=== PATIENT | male | born 1995 | race Native Hawaiian/Other Pacific Islander ===

== ENCOUNTER 2020-10-08 16:31 | Outpatient (REF) | payer OTHER, SELFPAY | END 2020-10-08 16:32 | disposition home or self-care (01) | LOC: HO.LAB 16:31 | PROVIDERS: Visit Provider Internal Medicine | DX: Z20.828 Contact with and (suspected) exposure to other viral communicable diseases (principal) | CPT/HCPCS: 36415; C9803; U0003 ==

== ENCOUNTER 2020-12-22 15:19 | Outpatient (REF) | payer OTHER, SELFPAY | END 2020-12-22 15:20 | disposition home or self-care (01) | LOC: HO.LAB 15:19 | PROVIDERS: Visit Provider Internal Medicine | DX: Z20.822 Contact with and (suspected) exposure to COVID-19 (principal) | CPT/HCPCS: 36415; C9803; U0003; U0005 ==

== ENCOUNTER 2021-01-20 10:04 | Outpatient (REF) | payer OTHER, SELFPAY ==
[2021-01-20 10:48] LABS: COVID-19 Test Positive (Negative)
== END 2021-01-20 10:05 | disposition home or self-care (01) ==
LOC: HO.LAB 10:04
PROVIDERS: Visit Provider Internal Medicine
DX: Z20.822 Contact with and (suspected) exposure to COVID-19 (principal)
CPT/HCPCS: 36415; 87635; C9803

== ENCOUNTER 2021-09-12 14:38 | Emergency (ER) | payer OTHER, SELFPAY ==
--- NOTE | ~2021-09-12 | XR_ITS ---
EXAMINATION: XR CHEST CLINICAL INFORMATION: Cough. Fever. COMPARISON: None TECHNIQUE: 2 views of the chest were obtained. FINDINGS: The lungs are clear. The cardiomediastinal silhouette is normal in size. There is no pleural effusion or pneumothorax. No acute osseous abnormality. XR/XR chest 2V IMPRESSION: No acute cardiopulmonary findings.
[2021-09-12 14:44] VITALS: BP 156/88; PULSE 97; RESP 16; TEMP 36.8; O2SAT 99; BMI 28.8
[2021-09-12 16:01] LABS: MANUAL DIFF FLAG NO
[2021-09-12 16:07] LABS: Basophils Percent Auto 0.1 % (0-2); Hemoglobin 17.5 g/dl (14.0-18.0); Imm Gran Abs Auto 0.02 X10*3/uL (0.00-0.03); Imm Gran Pct Auto 0.2 % (0.0-0.4); Lymphocytes Absolute Auto 0.8 X10*3/uL (1.2-4.9); Lymphocytes Percent Auto 8.1 % (20-40); Mean Corpuscular HGB Conc 34.3 g/dl (31.0-36.0); Mean Corpuscular Hemoglobin 29.8 pg (27.0-33.0); Mean Corpuscular Volume 86.9 fL (80.0-98.0); Mean Platelet Volume 9.8 fL (9.4-12.4); Monocytes Absolute Auto 0.9 X10*3/uL (0.1-1.2); Monocytes Percent Auto 8.9 % (2-11); Neutrophils Absolute Auto 7.9 x10*3/uL (2.0-8.3); Neutrophils Percent Auto 82.7 % (45-73); Platelet Count 202 X10*3/uL (160-400); Red Blood Count 5.87 X10*6/uL (4.60-5.80); Red Cell Distribution Width 12.4 % (11.0-16.0); White Blood Count 9.5 X10*3/uL (4.8-10.8)
[2021-09-12 16:17] VITALS: BP 148/80; PULSE 88; RESP 18; TEMP 38.2; O2SAT 100
[2021-09-12 16:17] LABS: Alanine Aminotransferase 43 U/L (0-40); Albumin Level 4.2 g/dL (3.5-5.0); Alkaline Phosphatase 107 U/L (39-117); Anion Gap 13 (12-20); Aspartate Amino Transferase 27 U/L (5-37); Bilirubin Total 0.9 mg/dL (0.0-1.0); Blood Urea Nitrogen 11 mg/dL (9-16); Calcium 9.4 mg/dL (8.4-10.2); Carbon Dioxide 26 mmol/L (22-29); Chloride 104 mmol/L (96-108); Creatinine Clr Calc Pharmacy 106.8; Estimated Glomerular Filt Rate > 60; Glucose Random 101 mg/dL (60-115); Potassium 3.7 mmol/L (3.3-5.1); Sodium 139 mmol/L (135-145); Total Protein 7.4 g/dL (6.5-8.0)
--- NOTE | 2021-09-12 16:27 | ED.NAVMDI ---
HPI - Nausea/Vomiting/Diarrhea General Chief complaint: Nausea/Vomiting/Diarrhea Stated complaint: N/V/D Chest pain Time Seen by Provider: 09/12/21 16:18 Source: patient Mode of arrival: ambulatory Limitations: no limitations History of Present Illness HPI Narrative: 25-year-old male here with complaints of waking with vomiting and 01:00 o'clock this morning. Patient tells me he was able to fall back asleep but then woke up several hours later with diarrhea. He did have some continue dry heaves but no additional vomiting episodes since this morning. He denies any associated abdominal pain. He does feel like he has had some chills and potentially a fever. Also complaining of some chest discomfort described as burning. No shortness of breath, cough, runny nose, headache, joint pain or rash. Associated nausea: Yes Related Data Previous Rx's Medication Instructions Recorded ondansetron 4 mg disintegrating 4 mg PO Q6H PRN #10 tab 09/12/21 tablet Allergies Allergy/AdvReac Type Severity Reaction Status Date / Time aspirin [ASPIRIN] Allergy Unknown HIVES Unverified 06/19/20 18:56 Review of Systems Review of Systems: Yes all other systems are reviewed and are negative Constitutional: Constitutional: Reports no additional constitutional complaints, Denies body ache(s), Reports chills, Reports fever(s) (subjective ), Denies headache(s) and Denies weakness Eyes: Eyes: Reports no additional eye complaints and Denies change in vision ENT: Reports system reviewed and no additional complaints, except as documented, Denies dizziness, Denies headache(s), Denies nasal congestion, Denies nasal discharge and Denies neck pain Cardiovascular: Cardiovascular: Reports no additional cardiovascular complaints, Reports chest pain, Denies leg edema and Denies dyspnea Respiratory: Respiratory: Reports no additional respiratory complaints, Denies cough and Denies dyspnea Gastrointestinal: Gastrointestinal: Reports no additional gastrointestinal complaints, Denies abdominal pain, Reports diarrhea, Reports nausea and Reports vomiting Genitourinary: Genitourinary: Denies urinary incontinence Musculoskeletal: Musculoskeletal: Reports no additional musculoskeletal complaints, Denies back pain, Denies arthralgias, Denies joint swelling, Denies neck pain, Denies numbness and Denies tingling Integumentary/Breasts: Skin/Breast: Reports system reviewed and no additional complaints, except as docu and Denies rash Neurologic: Reports system reviewed and no additional complaints, except as documented, Denies Abnormal speech present, Denies dizziness, Denies headache(s), Denies numbness, Denies tingling and Denies weakness PMFSH Past Medical History Attestation statement: The following information was validated with the patient. Source: old records reviewed and nursing notes reviewed Medical History No known health problems Social History Social History Advance Directives: No Advance Directives Information Provided: No Physical Exam Vital Signs: Vital Signs: Last Vital Signs Temp 99.1 F 09/12/21 17:32 Pulse 79 09/12/21 17:32 Resp 16 09/12/21 17:32 BP 123/78 09/12/21 17:32 Pulse Ox 94 09/12/21 17:32 BMI result Body Mass Index 28.8 Const: General: cooperative, healthy appearing, comfortable and no acute distress Orientation/consciousness: patient oriented x3 Limitations: no limitations HENMT: Head: Yes normal to inspection Ears: hearing grossly normal bilaterally General nose exam: Normal external nose present Face and sinus: Yes normal facial exam Mouth: Normal oral and palatal mucosa present Throat: Yes posterior oropharynx normal Eyes: General: appearance normal, both eyes and all related structures Pupils: Equal, round and reactive pupils present Neck: Neck: Yes normal visual inspection Chest: Chest palpation & inspection: normal inspection of the chest Resp: Effort & Inspection: normal respiratory effort Auscultation: clear to auscultation bilaterally Cardio: Rate: regular rate Rhythm: regular rhythm Peripheral pulses: Peripheral pulses 2+ throughout GI: Inspection: Yes normal to inspection Palpation (GI): Soft to palpation and nontender Auscultation: normal bowel sounds Back/Spine/Pelvis: Thoracic/Lumbar Spine: thoracic and lumbar spine normal to inspection Skin: General skin exam: no rashes or lesions noted Neuro: General: patient oriented x3, no focal motor deficits and normal sensation to monofilament Cranial nerves: Yes Equal, round and reactive pupils present Cognition (Neuro): normal cognition Speech: No Abnormal speech present Gait exam (Neuro): Normal gait present Motor exam (neuro): 5/5 motor strength present throughout Extrem: General: Yes normal to inspection, Yes no pedal edema and Yes no calf tenderness Course Course Course Narrative: 25 yo male here with complaints of vomiting, diarrhea, chest burning , chills, subjective fevers since 0100. No abdominal pain. Patient has not vomited in several hours. On arrival he does have a low-grade fever. Will give Zofran sublingual, APAP for fever. Check labs, COVID screen an x-ray. [id number], COVID screen, chest x-ray unremarkable. Patient was able to tolerate Tylenol and [place] with no additional vomiting episodes. Repeat abdominal exam unchanged with no abdominal pain. Likely viral gastroenteritis. Reviewed worrisome signs and symptoms of when to return to the emergency department. Comfortable discharge home. MDM - Nausea/Vomiting/Diarrhea Medical Records Attestation: I reviewed the patient's medical records. Lab Data Attestation: I reviewed the patient's lab results. Result diagrams: 09/12/21 15:56 09/12/21 15:56 Labs: Lab Results 09/12/21 09/12/21 09/12/21 Range/Units 15:56 15:56 15:56 WBC 9.5 (4.8-10.8) X10*3/uL RBC 5.87 H (4.60-5.80) X10*6/uL Hgb 17.5 (14.0-18.0) g/dl Hct 51.0 (42.0-52.0) % MCV 86.9 (80.0-98.0) fL MCH 29.8 (27.0-33.0) pg MCHC 34.3 (31.0-36.0) g/dl RDW 12.4 (11.0-16.0) % Plt Count 202 (160-400) X10*3/uL MPV 9.8 (9.4-12.4) fL Immature Gran % (Auto) 0.2 (0.0-0.4) % Neut % (Auto) 82.7 H (45-73) % Lymph % (Auto) 8.1 L (20-40) % [place] % (Auto) 8.9 (2-11) % Eos % (Auto) 0.0 (0-4) % Baso % (Auto) 0.1 (0-2) % Lymph # (Auto) 0.8 L (1.2-4.9) X10*3/uL [place] # (Auto) 0.9 (0.1-1.2) X10*3/uL Eos # (Auto) 0.0 (0.0-0.4) X10*3/uL Baso # (Auto) 0.0 (0.0-0.2) X10*3/uL Abs Immat Gran (auto) 0.02 (0.00-0.03) X10*3/uL Absolute Neuts (auto) 7.9 (2.0-8.3) x10*3/uL Absolute Nucleated RBC 0.000 (0.0-0.012) X10*3/uL Nucleated RBC % (auto) 0.0 (0.0-0.2) /100WBC Sodium 139 (135-145) mmol/L Potassium 3.7 (3.3-5.1) mmol/L Chloride 104 (96-108) mmol/L Carbon Dioxide 26 (22-29) mmol/L Anion Gap 13 (12-20) BUN 11 (9-16) mg/dL Creatinine 1.20 (0.5-1.4) mg/dL Estim Creat Clear Calc 106.8 Estimated GFR > 60 Random Glucose 101 (60-115) mg/dL Calcium 9.4 (8.4-10.2) mg/dL Total Bilirubin 0.9 (0.0-1.0) mg/dL AST 27 (5-37) U/L ALT 43 H (0-40) U/L Alkaline Phosphatase 107 (39-117) U/L Total Protein 7.4 (6.5-8.0) g/dL Albumin 4.2 (3.5-5.0) g/dL COVID-19 (LAYO) Negative (Negative) COVID-19 Clin Com See Note Imaging Data Chest x-ray: Attestation: I personally reviewed and interpreted this imaging study as follows: Radiologist's impression: [address] [address] XRay Report Signed Patient: Eyal Amor MR#: [id number] : 1995 Acct:[id number] Age/Sex: 25 / M ADM Date: 09/12/21 Loc: HO.ED Attending Dr: Ordering Physician: Kimberlyn Staley NP Date of Service: 09/12/21 Procedure(s): XR chest 2V Accession Number(s): [id number] cc: Kimberlyn Staley NP~ EXAMINATION: XR CHEST CLINICAL INFORMATION: Cough. Fever. COMPARISON: None TECHNIQUE: 2 views of the chest were obtained. FINDINGS: The lungs are clear. The cardiomediastinal silhouette is normal in size. There is no pleural effusion or pneumothorax. No acute osseous abnormality. XR/XR chest 2V IMPRESSION: No acute cardiopulmonary findings. Discharge Plan Discharge Clinical Impression: Gastroenteritis Patient Disposition: Home, Self-Care Instructions: Gastroenteritis (ED) Additional Instructions: Start with clear liquid diet and advance diet as tolerated COVID test, blood work and x-ray are normal Prescriptions: New ondansetron 4 mg tablet,disintegrating 4 mg PO Q6H PRN (Reason: nausea and vomiting) Qty: 10 RF: 0 Referrals: Physician,None [Primary Care Provider] - 2 days Stand Alone Forms: Work/School Release Interventions: ED Discharge Assessment Last Done: 09/12/21 17:55 Discharge Date/Time: 09/12/21 17:56
[2021-09-12 16:29] LABS: COVID-19 Test Negative (Negative); IDNOW Serial# 08D9AD1C
[2021-09-12] MEDS: Ondansetron ODT 4 MG TAB.RAPDIS TRANSLINGU (16:29)
[2021-09-12] MEDS: Acetaminophen 325 MG TABLET 650 MG PO (16:36)
[2021-09-12 17:32] VITALS: BP 123/78; PULSE 79; RESP 16; TEMP 37.3; O2SAT 94
== END 2021-09-12 17:56 | disposition home or self-care (01) ==
PROVIDERS: Emergency Provider Emergency Medicine
DX: K52.9 Noninfective gastroenteritis and colitis, unspecified (principal); Z20.822 Contact with and (suspected) exposure to COVID-19; R11.2 Nausea with vomiting, unspecified; R50.9 Fever, unspecified
CPT/HCPCS: 36415; 71046; 80053; 85025; 87635; 99283; 99284

== ENCOUNTER 2022-09-07 11:56 | Emergency (ER) | payer SELFPAY ==
--- NOTE | ~2022-09-07 | XR_ITS ---
EXAMINATION: XR CHEST CLINICAL INFORMATION: Cough, shortness of breath. COMPARISON: 09/12/2021 chest radiographs. TECHNIQUE: 2 views of the chest were obtained. FINDINGS: No significant abnormality is noted involving the heart, lungs, mediastinum, bony thorax or soft tissues. XR/XR chest 2V IMPRESSION: Unremarkable examination.
[2022-09-07 12:02] VITALS: BP 148/98; PULSE 98; RESP 16; TEMP 38.5; O2SAT 96; BMI 28.7
--- NOTE | 2022-09-07 12:02 | ED.GENADULT ---
HPI - General Adult General Chief complaint: Upper Respiratory Symptoms <Becki Harper MD - Last Filed: 09/07/22 12:09> Stated complaint: Sore throat/Fever <Becki Harper MD - Last Filed: 09/07/22 12:09> Time Seen by Provider: 09/07/22 14:00 <Becki Harper MD - Last Filed: 09/07/22 12:09> Source: patient <KUMAR Nolan - Last Filed: 09/07/22 15:02> Mode of arrival: ambulatory <KUMAR Nolan - Last Filed: 09/07/22 15:02> Limitations: no limitations <KUMAR Nolan - Last Filed: 09/07/22 15:02> History of Present Illness HPI narrative: Patient is a 26 year old assigned male at with no reported medical history presenting to the emergency department today with a sore throat and a cough. Patient states that for the last 3 days he has had a cough, fever, and a sore throat. Patient states that his left eye has also been red. Patient denies any dizziness, lightheadedness, abdominal pain, nausea, vomiting, chills, blurry vision, double vision, loss of vision, chest pain, difficulty breathing, shortness of breath, back pain, night sweats, pain with urination, increased urinary frequency, increased urinary urgency, blood in his urine or stool, syncope or a near syncopal episode, recent trauma or falls, bowel incontinence, bladder incontinence, bowel retention, bladder retention, or any other complaints at this time. <KUMAR Nolan - Last Filed: 09/07/22 15:02> Onset (ago): day(s) (3) <KUMAR Nolan - Last Filed: 09/07/22 15:02> Severity: mild <KUMAR Nolan - Last Filed: 09/07/22 15:02> Severity scale (1-10): 3 <KUMAR Nolan - Last Filed: 09/07/22 15:02> Quality: aching and dull <KUMAR Nolan - Last Filed: 09/07/22 15:02> Pain Consistency: constant <KUMAR Nolan - Last Filed: 09/07/22 15:02> Relieving factors: none <KUMAR Nolan - Last Filed: 09/07/22 15:02> Exacerbating factors: none <KUMAR Nolan - Last Filed: 09/07/22 15:02> Associated symptoms: cough <KUMAR Nolan - Last Filed: 09/07/22 15:02> Treatments prior to arrival: none <KUMAR Nolan - Last Filed: 09/07/22 15:02> Related Data Home medications: Previous Rx's Medication Instructions Recorded ondansetron 4 mg disintegrating 4 mg PO Q6H PRN nausea and 09/12/21 tablet vomiting #10 tabs penicillin V potassium 500 mg 500 mg PO BID 10 days #20 tabs 09/07/22 tablet <Becki Harper MD - Last Filed: 09/07/22 12:09> Allergies/adverse reactions: Allergies Allergy/AdvReac Type Severity Reaction Status Date / Time aspirin [ASPIRIN] Allergy Unknown HIVES Unverified 06/19/20 18:56 <Becki Harper MD - Last Filed: 09/07/22 12:09> Review of Systems Constitutional: Constitutional: Reports no additional constitutional complaints, Denies chills, Reports fever(s) and Denies night sweats <KUMAR Nolan - Last Filed: 09/07/22 15:02> Eyes: Eyes: Reports no additional eye complaints, Denies blurry vision, Denies change in vision, Denies diplopia, Denies eye discharge, Denies loss of vision and Denies eye pain <KUMAR Nolan - Last Filed: 09/07/22 15:02> Comments: redness to the left eye <KUMAR Nolan - Last Filed: 09/07/22 15:02> ENT: Denies dizziness and Reports sore throat <KUMAR Nolan - Last Filed: 09/07/22 15:02> Cardiovascular: Cardiovascular: Reports no additional cardiovascular complaints, Denies chest pain, Denies lightheadedness, Denies Loss of Consciousness and Denies dyspnea <KUMAR Nolan - Last Filed: 09/07/22 15:02> Respiratory: Respiratory: Reports no additional respiratory complaints, Reports cough and Denies dyspnea <KUMAR Nolan - Last Filed: 09/07/22 15:02> Gastrointestinal: Gastrointestinal: Reports no additional gastrointestinal complaints, Denies abdominal pain, Denies melena, Denies hematochezia, Denies change in bowel habits and Denies change in stool character <KUMAR Nolan - Last Filed: 09/07/22 15:02> Genitourinary: Genitourinary: Reports no additional male genitourinary complaints, Denies hematuria, Denies oliguria, Denies difficulty urinating, Denies dysuria, Denies urinary frequency, Denies urinary hesitancy, Denies urinary incontinence and Denies urinary urgency <KUMAR Nolan - Last Filed: 09/07/22 15:02> Musculoskeletal: Musculoskeletal: Reports no additional musculoskeletal complaints, Denies numbness and Denies tingling <KUMAR Nolan - Last Filed: 09/07/22 15:02> Neurologic: Denies dizziness, Denies loss of vision, Denies numbness and Denies tingling <KUMAR Nolan - Last Filed: 09/07/22 15:02> Psychiatric: Psychiatric: Reports no additional psychiatric complaints <KUMAR Nolan - Last Filed: 09/07/22 15:02> Endocrine: Endocrine: Reports no additional endocrine complaints <KUMAR Nolan - Last Filed: 09/07/22 15:02> Hematologic/Lymphatic: Hematologic/Lymphatic: Reports no additional hematologic/lymphatic complaints <KUMAR Nolan - Last Filed: 09/07/22 15:02> Allergic/Immunologic: Allergic/Immunologic: Reports no additional allergic/immunologic complaints <KUMAR Nolan - Last Filed: 09/07/22 15:02> PMF Past Medical History Attestation statement: The following information was validated with the patient. <KUMAR Nolan - Last Filed: 09/07/22 15:02> Source: old records reviewed <KUMAR Nolan - Last Filed: 09/07/22 15:02> Medical History: Medical History No known health problems <Becki Harper MD - Last Filed: 09/07/22 12:09> Social History Social History: Social History Advance Directives: No Advance Directives Information Provided: No <Becki Harper MD - Last Filed: 09/07/22 12:09> Physical Exam ED Vital Signs: Vital Signs - 24 hr 09/07/22 12:02 Temperature 101.3 F H Pulse Rate 98 Respiratory Rate 16 Blood Pressure 148/98 H Pulse Oximetry 96 Oxygen Delivery Method Room Air BMI result Body Mass Index 28.7 <Becki Harper MD - Last Filed: 09/07/22 12:09> Vital Signs - 24 hr 09/07/22 12:02 Temperature 101.3 F H Pulse Rate 98 Respiratory Rate 16 Blood Pressure 148/98 H Pulse Oximetry 96 Oxygen Delivery Method Room Air BMI result Body Mass Index 28.7 <KUMAR Nolan - Last Filed: 09/07/22 15:02> Const General: cooperative, no acute distress, alert and awake <KUMAR Nolan - Last Filed: 09/07/22 15:02> Nutritional Appearance: well nourished <KUMAR Nolan - Last Filed: 09/07/22 15:02> Orientation/consciousness: patient oriented x3 <KUMAR Nolan - Last Filed: 09/07/22 15:02> Limitations: no limitations <KUMAR Nolan - Last Filed: 09/07/22 15:02> HENMT Head: Yes normal to inspection and Yes atraumatic <KUMAR Nolan - Last Filed: 09/07/22 15:02> Ears: hearing grossly normal bilaterally and external ears normal <KUMAR Nolna - Last Filed: 09/07/22 15:02> General nose exam: Normal external nose present, no nasal discharge noted and no epistaxis <KUMAR Nolan - Last Filed: 09/07/22 15:02> Face and sinus: Yes normal facial exam, No abrasion and No laceration <KUMAR Nolan - Last Filed: 09/07/22 15:02> Mouth: Normal oral and palatal mucosa present, no drooling and no muffled voice <KUMAR Nolan - Last Filed: 09/07/22 15:02> Throat: Yes posterior oropharynx abnormal (erythema, swelling) <KUMAR Nolan Last Filed: 09/07/22 15:02> Eyes Periorbital: periorbital findings normal <Jenelle Segura PA - Last Filed: 09/07/22 15:02> Eyelids: Yes eyelids normal <Jenelle Segura PA - Last Filed: 09/07/22 15:02> Conjunctivae: conjunctival abnormal left conjunctival icterus <Jenelle Segura PA - Last Filed: 09/07/22 15:02> Pupils: Equal, round and reactive pupils present <Jenelle Segura PA - Last Filed: 09/07/22 15:02> EOM: EOMs intact bilaterally <Jenelle Segura PA - Last Filed: 09/07/22 15:02> Neck Neck: Yes normal visual inspection, Yes full ROM and Yes no lymphadenopathy <Jenelle Segura PA - Last Filed: 09/07/22 15:02> Chest Chest palpation & inspection: normal inspection of the chest <Jenelle Segura PR - Last Filed: 09/07/22 15:02> Resp Effort & Inspection: normal respiratory effort and able to speak in complete sentences <Jenelle Segura PA - Last Filed: 09/07/22 15:02> Auscultation: clear to auscultation bilaterally <Jenelle Segura PA - Last Filed: 09/07/22 15:02> Cardio Rate: regular rate <Jenelle Segura PA - Last Filed: 09/07/22 15:02> Rhythm: regular rhythm <Jenelle Segura PR - Last Filed: 09/07/22 15:02> GI Inspection: Yes normal to inspection <Jenelle Segura PA - Last Filed: 09/07/22 15:02> Neuro General: patient oriented x3 and moves all extremities <Jenelle Segura PA - Last Filed: 09/07/22 15:02> Cranial nerves: Yes Equal, round and reactive pupils present <Jenelle Segura PA - Last Filed: 09/07/22 15:02> Cognition (Neuro): normal cognition <Jenelle Segura PA - Last Filed: 09/07/22 15:02> Motor exam (neuro): 5/5 motor strength present throughout <Jenelle Segura PA - Last Filed: 09/07/22 15:02> Sensory Exam: Normal double simultaneous stimulation for sensation <KUMAR Nolan - Last Filed: 09/07/22 15:02> Coordination: [id number] test normal <KUMAR Nolan - Last Filed: 09/07/22 15:02> Extrem General: Yes normal to inspection, Yes full ROM and Yes capillary refill normal <KUMAR Nolan - Last Filed: 09/07/22 15:02> Psych Appearance: grossly normal <KUMAR Nolan - Last Filed: 09/07/22 15:02> Mental Status: mental status grossly normal <KUMAR Nolan - Last Filed: 09/07/22 15:02> Affect: normal affect <KUMAR Nolan - Last Filed: 09/07/22 15:02> Attitude: cooperative <KUMAR Nolan - Last Filed: 09/07/22 15:02> Thought process: Normal thought process present <KUMAR Nolan - Last Filed: 09/07/22 15:02> Thought content: Normal thought content present <KUMAR Nolan - Last Filed: 09/07/22 15:02> Insight: Good insight present (Psych) <KUMAR Nolan - Last Filed: 09/07/22 15:02> Course Course Course Narrative: 26M with subjective fevers, chills, for 2 days with cough that he now says is blood-tinged at timesbut denies GI/ symptoms. VS Reviewed GEN: NAD LEFT EYE: conjunctival redness, mild swelling EARS: wnl THROAT: LEFT red/swelling, +adenopathy LUNGS: CTAB CVS: RRR ABD: NT/ND <Becki Harper MD - Last Filed: 09/07/22 12:09> Medications Administered Discontinued Medications Generic Name Dose Route Start Last Admin Trade Name Freq PRN Reason Stop Dose Admin Acetaminophen 975 mg 09/07/22 12:06 09/07/22 12:07 Acetaminophen 325 Mg Tablet PO 09/07/22 12:07 975 mg ONCE ONE Administration <Becki Harper MD - Last Filed: 09/07/22 12:09> Medications Administered Discontinued Medications Generic Name Dose Route Start Last Admin Trade Name Freq PRN Reason Stop Dose Admin Acetaminophen 975 mg 09/07/22 12:06 09/07/22 12:07 Acetaminophen 325 Mg Tablet PO 09/07/22 12:07 975 mg ONCE ONE Administration <KUMAR Nolan - Last Filed: 09/07/22 15:02> Medical Decision Making Medical Decision Making MDM Narrative: Patient is a 26 year old assigned male at with no reported medical history presenting to the emergency department today with a fever, cough, sore throat, and left eye redness. Patient's physical exam showed mild erythema of the left eye with erythema and swelling of the posterior oropharynx. Patient's COVID-19 and strep swabs were both positive. Patient's chest x-ray showed no acute process. I explained my physical exam findings as well as all test results to the patient. I answered all questions asked by the patient. I stressed the importance of the patient taking her] medication as prescribed. I stressed the importance of the patient following up with his primary care provider. I stressed the importance of the patient returning to the emergency department immediately if his symptoms were to worsen or if he were to develop any dizziness, shortness of breath, difficulty breathing, chest pain, blurry vision, loss of vision, nausea, vomiting, abdominal pain, fever, chills, back pain, or any other complaints. Patient verbalized agreement and understanding with this treatment plan and discharge. <KUMAR Nolan - Last Filed: 09/07/22 15:02> Differential Diagnoses: Differential diagnosis (strep pharyngitis, influenza, COVID-19) Differential Diagnosis: The differential diagnosis associated with the patient?s presentation includes: <KUMAR Nolan - Last Filed: 09/07/22 15:02> Independent interpretation of EKG, rhythm strip, radiology study: Independent interp EKG,rhythm strip, radiology study (This is not my interpretation but rather the radiologists interpretation via their report. ) I performed an independent interpretation of the: Plain X-Ray EXAMINATION: XR CHEST CLINICAL INFORMATION: Cough, shortness of breath. COMPARISON: 09/12/2021 chest radiographs. TECHNIQUE: 2 views of the chest were obtained. FINDINGS: No significant abnormality is noted involving the heart, lungs, mediastinum, bony thorax or soft tissues. XR/XR chest 2V IMPRESSION: Unremarkable examination. Dictated By: Anshul Elder MD Signed By: Electronically signed by Anshul Elder MD 09/07/22 1458 <KUMAR Nolan - Last Filed: 09/07/22 15:02> Discharge Plan Discharge Clinical Impression: Pharyngitis, COVID-19 <Becki Harper MD - Last Filed: 09/07/22 12:09> Patient Disposition: Home, Self-Care <Becki Harper MD - Last Filed: 09/07/22 12:09> Instructions: Pharyngitis (ED), COVID-19 (Coronavirus Disease 2019) (ED) <Becki Harper MD - Last Filed: 09/07/22 12:09> Additional Instructions: Follow up with your primary care provider. Return to the emergency department immediately if your symptoms worsen or if you develop any dizziness, shortness of breath, difficulty breathing, chest pain, blurry vision, loss of vision, nausea, vomiting, abdominal pain, fever, chills, back pain, or any other complaints. <Becki Harper MD - Last Filed: 09/07/22 12:09> Prescriptions: New penicillin V potassium 500 mg tablet 500 mg PO BID 10 Days Qty: 20 0RF No Action ondansetron 4 mg tablet,disintegrating 4 mg PO Q6H PRN (Reason: nausea and vomiting) Qty: 10 0RF <Becki Harper MD - Last Filed: 09/07/22 12:09> Referrals: [facility] Family [facility] [Provider Group] (Call to establish and follow up with a primary care provider. If you already have a primary care provider, please follow up with them. ) [facility] Primary [facility], [place] [Provider Group] (Call to establish and follow up with a primary care provider. If you already have a primary care provider, please follow up with them. ) [facility] [Provider Group] (Call to establish and follow up with a primary care provider. If you already have a primary care provider, please follow up with them. ) <Becki Harper MD - Last Filed: 09/07/22 12:09> Stand Alone Forms: Work/School Release <Becki Harper MD - Last Filed: 09/07/22 12:09> Interventions: ED Discharge Assessment Last Done: 09/07/22 14:12 <Becki Harper MD - Last Filed: 09/07/22 12:09> Discharge Date/Time: 09/07/22 14:15 <Becki Harper MD - Last Filed: 09/07/22 12:09> Print Language: [place] <Bceki Harper MD - Last Filed: 09/07/22 12:09>
[2022-09-07] MEDS: Acetaminophen 325 MG TABLET 975 MG PO (12:07)
[2022-09-07 13:07] LABS: Monotest Negative (Negative)
[2022-09-07 13:14] LABS: Strep A Nucleic Acid Positive (Negative)
[2022-09-07 13:27] LABS: Influenza A PCR NEGATIVE (Negative); Influenza B PCR NEGATIVE (Negative); Resp Syncy Virus RNA Qual PCR NEGATIVE (Negative); SARS COV2 PCR INHOUSE POSITIVE (Negative)
== END 2022-09-07 14:15 | disposition home or self-care (01) ==
PROVIDERS: Student in an Organized Health Care Education/Training Program; Emergency Provider Emergency Medicine
DX: U07.1 COVID-19 (principal); R50.9 Fever, unspecified; J02.9 Acute pharyngitis, unspecified; Z79.899 Other long term (current) drug therapy
CPT/HCPCS: 0241U; 36415; 71046; 86308; 87651; 99283

== ENCOUNTER 2023-09-08 12:44 | Emergency (ER) | payer SELFPAY ==
--- NOTE | ~2023-09-08 | US_ITS ---
EXAMINATION: US ABDOMEN LIMITED CLINICAL INFORMATION: Right upper quadrant pain. COMPARISON: 12/31/2017 TECHNIQUE: Real-time imaging of the right upper quadrant abdominal viscera. FINDINGS: PANCREAS: Obscured. LIVER: The liver is normal in size. The liver contour is normal. Parenchymal echogenicity is normal. No focal hepatic lesion. There is no intrahepatic biliary duct dilatation seen. GALLBLADDER: The gallbladder is physiologically distended without evidence of stones, sludge, polyps, wall thickening or pericholecystic fluid. COMMON BILE DUCT: Normal in caliber measuring 0.3 cm in diameter. RIGHT KIDNEY: No hydronephrosis. No renal calculi or focal parenchymal lesions. The kidney measures 9.9 cm in maximum dimension. FREE FLUID: None. US/US abdomen limited IMPRESSION: Unremarkable right upper quadrant ultrasound.
--- NOTE | ~2023-09-08 | CT_ITS ---
EXAMINATION: CT ABDOMEN AND PELVIS WITHOUT CONTRAST CLINICAL INFORMATION: Left flank pain. Hematuria. COMPARISON: None available. TECHNIQUE: Multidetector volumetric imaging was performed from the superior aspect of the liver through the pubic symphysis. Sagittal and coronal reformatted images were obtained on the technologist's workstation. This CT examination was performed using dose optimization techniques as appropriate, variously including the following: *Automated exposure control *Adjustment of mA and/or kV according to patient size (this includes techniques or standardized protocols for targeted exams where dose is matched to indication/reason for exam; i.e. extremities or head) *Use of iterative reconstruction technique DLP: 649 mGy-cm FINDINGS: LUNG BASES: The visualized lung bases are unremarkable. LIVER, GALLBLADDER, AND BILIARY TREE: The liver is normal in size, shape, and attenuation. No focal hepatic lesion or biliary ductal dilatation is present. The gallbladder is unremarkable with no evidence of radiopaque gallstones, gallbladder wall thickening, or obvious pericholecystic inflammatory changes. PANCREAS: Unremarkable. SPLEEN: Unremarkable. ADRENAL GLANDS: Unremarkable. KIDNEYS AND URETERS: The kidneys are normal in size, shape, and attenuation. No hydronephrosis, hydroureter, or calculi seen. No perinephric stranding. BLADDER: Unremarkable. GASTROINTESTINAL TRACT: The small and large bowel are unremarkable. The appendix is unremarkable. ABDOMINAL WALL: No significant hernia is appreciated. LYMPH NODES: Normal. VASCULAR: Unremarkable. PELVIC VISCERA: Unremarkable. OSSEOUS STRUCTURES: Unremarkable. CT/CT abdomen pelvis wo IV con IMPRESSION: No renal calculi or renal collecting system obstructive change. No acute intra-abdominal process. Fleischner guidelines were followed.
[2023-09-08 12:54] VITALS: BP 141/76; PULSE 102; RESP 18; TEMP 36.1; O2SAT 97; BMI 29.4
--- NOTE | 2023-09-08 12:57 | ED_ITS ---
HPI - Nausea/Vomiting/Diarrhea General Chief complaint: Abdominal Pain Stated complaint: Vomiting, fainted twice today Time Seen by Provider: 09/08/23 21:02 Source: patient and family Mode of arrival: ambulatory Limitations: no limitations History of Present Illness HPI Narrative: The emergency room accompanied by family. Patient states that earlier today he woke up with nausea vomiting and diarrhea. Patient had multiple episodes of both. When patient was taking a shower, patient has syncopal episode, then he was able to get up to his bedroom where he passed out again. Patient denies chest pain or shortness of breath. Patient states that he has been unable to keep any fluids down. Patient denies fever or chills, no UTI symptoms. Patient states that today when he urinated , he had dysuria. Patient states that his urine is darker than usual. Patient states that he has mild abdominal discomfort especially in the epigastric area. Related Data Previous Rx's Medication Instructions Recorded ondansetron 4 mg disintegrating 4 mg PO Q6H PRN nausea and 09/12/21 tablet vomiting #10 tabs penicillin V potassium 500 mg 500 mg PO BID 10 days #20 tabs 09/07/22 tablet levofloxacin 500 mg tablet 500 mg PO DAILY #9 tabs 09/09/23 loperamide 2 mg capsule 2 mg PO Q6H PRN loose stool #10 09/09/23 caps ondansetron HCl 4 mg tablet 4 mg PO Q8H PRN nausea and 09/09/23 vomiting #10 tabs Allergies Allergy/AdvReac Type Severity Reaction Status Date / Time aspirin [ASPIRIN] Allergy Unknown HIVES Verified 09/08/23 13:02 Review of Systems 2 Review of Systems: Constitutional : No Weight loss, No Fever, No Chills, No Night Sweats, No Fatigue, No Malaise ENT/Mouth : No Hearing loss, No Ear Pain, No Nasal Congestion, No Sinus Pain, No Hoarseness, No sore throat, No Rhinorrhea, No Swallowing Difficulty Eyes: No Eye Pain, No Swelling, No Redness, No Foreign Body, No Discharge, No Vision Changes Cardiovascular : No Chest Pain, No SOB, No Dyspnea on Exertion, No Orthopnea, No Edema, No Palpitations Respiratory : No Cough, No Sputum, No Wheezing, No Smoke Exposure, No Dyspnea Gastrointestinal : Finding of nausea vomiting and diarrhea. No Constipation, complaining of mild epigastric and generalized abdominal discomfort Genitourinary : no irregular bleeding, No Dysuria, No Urinary Frequency, No Hematuria, No Urinary Incontinence, No Urgency, No Flank Pain, No Urinary Flow Changes, No Hesitancy Musculoskeletal : No joint pain, No Myalgias, No Joint Swelling Skin : No Skin Lesions, No rash Neuro : No Weakness, No Numbness, No Paresthesias, complaining of 2 episodes of loss of consciousness and lightheadedness after standing., No Dizziness, No Headache Psych : No Anxiety/Panic, No Depression, No SI/HI/AH/VH, No Social Issues, Heme/Lymph: No Bruising, No Bleeding,No Lymphadenopathy Endocrine : No Polyuria, No Polydipsia, No Temperature Intolerance [facility] Past Medical History Medical History No known health problems Social History Social History Smoked in Last 30 Days: No Advance Directives: No Advance Directives Information Provided: No Physical Exam 2 Vital Signs: Vital Signs: Last Vital Signs Temp 98.0 F 09/09/23 01:45 Pulse 100 09/09/23 01:45 Resp 16 09/09/23 01:45 BP 112/67 09/09/23 01:45 Pulse Ox 98 09/09/23 01:45 O2 Del Method Room Air 09/09/23 01:45 BMI result Body Mass Index 29.4 Const: Other: Appearance: Alert. Oriented X3. No acute distress. Eyes: Pupils equal, round and reactive to light. ENT: Pharynx normal. Dry oral mucosa Neck: Normal inspection. Neck supple. No lymph nodes noted. No crepitus CVS: Normal heart rate and rhythm. Pulses normal. Normal S1 and S2 Respiratory: No respiratory distress. Breath sounds normal. No Wheezing. No rales Abdomen: Soft and nontender. No rigidity. No distention. No guarding, no rebound, negative McBurney's point, no CVA tenderness Skin: Skin warm and dry. Normal skin color. Normal skin turgor. Extremities: No lower extremity edema. No Lacerations. No Rash Neuro: Oriented X 3. No motor deficit. No sensory deficit. Moving all extremities. No slurred speech. CN 2 through 12 grossly intact Psych: calm, cooperative, normal affect Course Course Course Narrative: This is an RME: Additional HPI, ROS, PE not included below will be deferred to primary provider. This is a 14-kb[age]-cmu-male with no medical problems, presenting to the emergency department with complaints of right upper quadrant pain, nausea and vomiting since this morning. Patient has vomited over 10 times. No urinary symptoms. He has also had diarrhea. Patient states that he had 2 syncopal episodes. Plan: Labs, viral swabs, ultrasound right upper quadrant, Zofran 4 mg ODT Medications Administered Discontinued Medications Generic Name Dose Route Start Last Admin Trade Name Freq PRN Reason Stop Dose Admin Sodium Chloride 2,000 mls @ 999 mls/hr 09/08/23 21:11 09/09/23 01:01 Ns IVCONT 09/08/23 23:11 Infused .Q2H1M ONE Infusion Levofloxacin 500 mg 09/08/23 21:20 09/08/23 21:37 Levofloxacin 500 Mg Tablet PO 09/08/23 21:21 500 mg ONCE ONE Administration Loperamide HCl 4 mg 09/08/23 21:11 09/08/23 21:37 Loperamide Hcl 2 Mg Capsule PO 09/08/23 21:12 4 mg ONCE ONE Administration Ondansetron HCl 4 mg 09/08/23 12:57 09/08/23 13:01 Ondansetron Odt 4 Mg Tab.Rapdis TRANSLINGU 09/08/23 12:58 4 mg ONCE ONE Administration Prochlorperazine Edisylate 10 mg 09/08/23 21:16 09/08/23 22:34 Prochlorperazine Edisylate 10 Mg/2 Ml Vial IVPUSH 09/08/23 21:17 10 mg ONCE ONE Administration Medical Decision Making Medical Decision Making [facility] Narrative: -my interpretation of labs: White blood cell count elevated 16.6. Likely reactive leukocytosis. Chemistry showed no electrolyte abnormalities. LFTs negative, lipase negative, urinalysis positive for UTI -troponin negative -my interpretation of EKG: Sinus rhythm, tachycardia, heart rate 103, no ST segment depression or elevation, nonspecific T-wave inversion in lead III , QTC 434 -orthostatic vitals negative -patient receiving IV fluids, a ready received sublingual Zofran, getting IV Compazine and PO Levaquin -after IV fluids, patient's heart rate decreased -I discussed with the patient that he does have a urinary tract infection. Patient reports that he had mild discomfort on the left side of his back. Discussed with the patient that this could be pyelonephritis versus a kidney stone. We will proceed with a CT scan. -my interpretation of CT scan, there is questionable 1 mm stone in the left UPJ. -radiology report, no ureterolithiasis. Differential Diagnosis Differential Diagnoses: The differential diagnosis associated with the presentation includes (UTI, pyelonephritis, ureterolithiasis, renal colic) Lab Data MDM Lab Attestation statement: I reviewed the patient's lab results. 09/08/23 15:31 09/08/23 15:31 Labs: Lab Results 09/08/23 09/08/23 Range/Units 15:31 20:33 WBC 16.6 H (4.8-10.8) X10*3/uL RBC 6.32 H (4.60-5.80) X10*6/uL Hgb 18.7 H (14.0-18.0) g/dl Hct 54.5 H (42.0-52.0) % MCV 86.2 (80.0-98.0) fL MCH 29.6 (27.0-33.0) pg MCHC 34.3 (31.0-36.0) g/dl RDW 12.3 (11.0-16.0) % Plt Count 276 D (160-400) X10*3/uL MPV 10.3 (9.4-12.4) fL Immature Gran % (Auto) 0.3 (0.0-0.4) % Neut % (Auto) 92.6 H (45-73) % Lymph % (Auto) 3.5 L (20-40) % [place] % (Auto) 3.1 (2-11) % Eos % (Auto) 0.1 (0-4) % Baso % (Auto) 0.4 (0-2) % Lymph # (Auto) 0.6 L (1.2-4.9) X10*3/uL [place] # (Auto) 0.5 (0.1-1.2) X10*3/uL Eos # (Auto) 0.0 (0.0-0.4) X10*3/uL Baso # (Auto) 0.1 (0.0-0.2) X10*3/uL Abs Immat Gran (auto) 0.05 H (0.00-0.03) X10*3/uL Absolute Neuts (auto) 15.4 H (2.0-8.3) x10*3/uL Absolute Nucleated RBC 0.000 (0.0-0.012) X10*3/uL Nucleated RBC % (auto) 0.0 (0.0-0.2) /100WBC Smear Tech's Comments VERIFIED Sodium 141 (135-145) mmol/L Potassium 4.8 D (3.3-5.1) mmol/L Chloride 105 (96-108) mmol/L Carbon Dioxide 28 (22-29) mmol/L Anion Gap 13 (12-20) BUN 15 (9-16) mg/dL Creatinine 1.36 (0.5-1.4) mg/dL Estim Creat Clear Calc 93.4 Estimated GFR > 60 Random Glucose 115 (60-115) mg/dL Calcium 9.7 (8.4-10.2) mg/dL Magnesium 2.1 (1.6-2.6) mg/dL Total Bilirubin 0.8 (0.0-1.0) mg/dL Direct Bilirubin 0.3 (0.0-0.5) mg/dL AST 25 (5-37) U/L ALT 45 H (0-40) U/L Alkaline Phosphatase 121 H (39-117) U/L Troponin I High Sens < 2.7 (<3.5-35.0) ng/L Total Protein 8.5 H (6.5-8.0) g/dL Albumin 4.5 (3.5-5.0) g/dL Lipase 12 (8-78) U/L Urine Color Dark Yellow Urine Appearance Cloudy Urine pH 5.5 (5.0-9.0) Ur Specific [place] >= 1.030 H (1.005-1.025) Urine Protein 300 (3+) H (Neg-Trace) mg/dL Urine Glucose (UA) Negative (Negative) mg/dL Urine Ketones 15 (Negative) mg/dL Urine Blood Large (3+) H (Negative) Urine Nitrite Negative (Negative) Ur Leukocyte Esterase Small (1+) H (Negative) Urine RBC >20 H (0-2) /HPF Urine WBC 11-20 H (0-5) /HPF Ur Squamous Epith Cells 6-10 (0-2) /HPF Urine Bacteria None Seen (None Seen) Hyaline Casts 3-5 (0-2) /LPF Influenza Type A (PCR) NEGATIVE (Negative) Influenza Type B (PCR) NEGATIVE (Negative) RSV RNA Qual (PCR) NEGATIVE (Negative) SARS-CoV-2 RNA (RT-PCR) NEGATIVE (Negative) Independent Interpretation I performed an independent interpretation of an: CT Scan Radiology Impression Discussion of test interpretation with radiology: I have reviewed the radiologist's reading. Radiologist Impression: FINDINGS: LUNG BASES: The visualized lung bases are unremarkable. LIVER, GALLBLADDER, AND BILIARY TREE: The liver is normal in size, shape, and attenuation. No focal hepatic lesion or biliary ductal dilatation is present. The gallbladder is unremarkable with no evidence of radiopaque gallstones, gallbladder wall thickening, or obvious pericholecystic inflammatory changes. PANCREAS: Unremarkable. SPLEEN: Unremarkable. ADRENAL GLANDS: Unremarkable. KIDNEYS AND URETERS: The kidneys are normal in size, shape, and attenuation. No hydronephrosis, hydroureter, or calculi seen. No perinephric stranding. BLADDER: Unremarkable. GASTROINTESTINAL TRACT: The small and large bowel are unremarkable. The appendix is unremarkable. ABDOMINAL WALL: No significant hernia is appreciated. LYMPH NODES: Normal. VASCULAR: Unremarkable. PELVIC VISCERA: Unremarkable. OSSEOUS STRUCTURES: Unremarkable. CT/CT abdomen pelvis wo IV con IMPRESSION: No renal calculi or renal collecting system obstructive change. No acute intra-abdominal process. Fleischner guidelines were followed. Discharge Plan Discharge Clinical Impression: Acute pyelonephritis Patient Disposition: Home, Self-Care Instructions: Kidney Infection (ED) Additional Instructions: Please follow-up with your primary care physician tomorrow. If you have any worsening or new symptoms, please return to the emergency room or call 911 Prescriptions: New levofloxacin 500 mg tablet 500 mg PO DAILY Qty: 9 0RF ondansetron HCl 4 mg tablet 4 mg PO Q8H PRN (Reason: nausea and vomiting) Qty: 10 0RF loperamide 2 mg capsule 2 mg PO Q6H PRN (Reason: loose stool) Qty: 10 0RF No Action ondansetron 4 mg tablet,disintegrating 4 mg PO Q6H PRN (Reason: nausea and vomiting) Qty: 10 0RF penicillin V potassium 500 mg tablet 500 mg PO BID 10 Days Qty: 20 0RF
[2023-09-08] MEDS: Ondansetron ODT 4 MG TAB.RAPDIS TRANSLINGU (13:01)
[2023-09-08 15:44] LABS: Basophils Absolute Auto 0.1 X10*3/uL (0.0-0.2); Basophils Percent Auto 0.4 % (0-2); Eosinophils Percent Auto 0.1 % (0-4); Hematocrit 54.5 % (42.0-52.0); Hemoglobin 18.7 g/dl (14.0-18.0); Imm Gran Abs Auto 0.05 X10*3/uL (0.00-0.03); Imm Gran Pct Auto 0.3 % (0.0-0.4); Lymphocytes Absolute Auto 0.6 X10*3/uL (1.2-4.9); Lymphocytes Percent Auto 3.5 % (20-40); MANUAL DIFF FLAG SCAN; Mean Corpuscular HGB Conc 34.3 g/dl (31.0-36.0); Mean Corpuscular Hemoglobin 29.6 pg (27.0-33.0); Mean Corpuscular Volume 86.2 fL (80.0-98.0); Mean Platelet Volume 10.3 fL (9.4-12.4); Monocytes Absolute Auto 0.5 X10*3/uL (0.1-1.2); Monocytes Percent Auto 3.1 % (2-11); Neutrophils Absolute Auto 15.4 x10*3/uL (2.0-8.3); Neutrophils Percent Auto 92.6 % (45-73); Platelet Count 276 X10*3/uL (160-400); Red Blood Count 6.32 X10*6/uL (4.60-5.80); Red Cell Distribution Width 12.3 % (11.0-16.0); SCAN SMEAR FLAG 1; White Blood Count 16.6 X10*3/uL (4.8-10.8)
[2023-09-08 15:58] LABS: Alanine Aminotransferase 45 U/L (0-40); Albumin Level 4.5 g/dL (3.5-5.0); Alkaline Phosphatase 121 U/L (39-117); Anion Gap 13 (12-20); Aspartate Amino Transferase 25 U/L (5-37); Bilirubin Direct 0.3 mg/dL (0.0-0.5); Bilirubin Total 0.8 mg/dL (0.0-1.0); Blood Urea Nitrogen 15 mg/dL (9-16); Calcium 9.7 mg/dL (8.4-10.2); Carbon Dioxide 28 mmol/L (22-29); Chloride 105 mmol/L (96-108); Creatinine Clr Calc Pharmacy 93.4; Estimated Glomerular Filt Rate > 60; Glucose Random 115 mg/dL (60-115); Magnesium 2.1 mg/dL (1.6-2.6); Potassium 4.8 mmol/L (3.3-5.1); Sodium 141 mmol/L (135-145); Total Protein 8.5 g/dL (6.5-8.0)
[2023-09-08 16:06] LABS: SLIDE REVIEW VERIFIED
[2023-09-08 16:19] LABS: Influenza A PCR NEGATIVE (Negative); Influenza B PCR NEGATIVE (Negative); Resp Syncy Virus RNA Qual PCR NEGATIVE (Negative); SARS COV2 PCR INHOUSE NEGATIVE (Negative)
[2023-09-08 20:27] VITALS: BP 129/79; PULSE 113; RESP 16; TEMP 37; O2SAT 94
--- NOTE | 2023-09-08 20:34 | MHC.EDTECH ---
PATIENT URINE SAMPLE COLLECTED AND SENT TO LAB ,VITALS TAKEN .
[2023-09-08 20:58] LABS: Lipase 12 U/L (8-78)
[2023-09-08 21:00] LABS: Appearance Urine Cloudy; Color Urine Dark Yellow; Glucose Urine UA Negative (Negative); Leukocyte Esterase Urine Small (1+) (Negative); Nitrite Urine Negative (Negative); PH 5.5 (5.0-9.0); Specific Gravity - Urine >= 1.030 (1.005-1.025); UMIC TRIGGER UACC YES; Urine Blood Large (3+) (Negative); Urine Ketones 15 mg/dL (Negative); Urine Protein 300 (3+) mg/dL (Neg-Trace)
[2023-09-08 21:05] LABS: Bacteria Urine None Seen (None Seen); RBC Urine >20 /HPF (0-2); UACC Culture Trigger YES
--- NOTE | 2023-09-08 21:11 | ECG_ITS ---
Test Reason : PALPATIONS Blood Pressure : / mmHG Vent. Rate : 103 BPM Atrial Rate : 103 BPM P-R Int : 154 ms QRS Dur : 076 ms QT Int : 332 ms P-R-T Axes : 031 029 014 degrees QTc Int : 434 ms Sinus tachycardia Otherwise normal ECG No previous ECGs available Referred By: Katie Stephens Electronically Signed By:RITA MARK
[2023-09-08 21:20] VITALS: BP 130/79; PULSE 112
[2023-09-08 21:21] VITALS: BP 127/84; PULSE 120
[2023-09-08 21:22] VITALS: BP 124/85; PULSE 136
[2023-09-08 21:31] LABS: Troponin-I High Sensitivity < 2.7 ng/L (<3.5-35.0)
[2023-09-08] MEDS: 0.9 % Sodium Chloride 2,000 ML 999 ML IVCONT (21:36)
[2023-09-08] MEDS: Loperamide HCl 2 MG CAPSULE 4 MG PO (21:37)
[2023-09-08] MEDS: levoFLOXacin 500 MG TABLET PO (21:37)
--- NOTE | 2023-09-08 21:38 | MHC.EDTECH ---
Patient [facility] vitals taken and ekg done and was read by Provider .
[2023-09-08 21:54] VITALS: BP 106/67; PULSE 100; RESP 16; TEMP 37.9; O2SAT 98
[2023-09-08] MEDS: Prochlorperazine Edisylate 10 MG/2 ML VIAL IVPUSH (22:34)
[2023-09-09] VITALS: BP 128/58; PULSE 94; RESP 16; TEMP 36.9; O2SAT 97
[2023-09-09 01:45] VITALS: BP 112/67; PULSE 100; RESP 16; TEMP 36.7; O2SAT 98
== END 2023-09-09 02:30 | disposition home or self-care (01) ==
PROVIDERS: Physician Assistant Medical; Student in an Organized Health Care Education/Training Program; Emergency Provider Emergency Medicine
DX: N10 Acute pyelonephritis (principal); Z20.822 Contact with and (suspected) exposure to COVID-19; Z20.828 Contact with and (suspected) exposure to other viral communicable diseases; R11.2 Nausea with vomiting, unspecified; R10.11 Right upper quadrant pain
CPT/HCPCS: 0241U; 36415; 74176; 76705; 80048; 80076; 81001; 81003; 83690; 83735; 84484; 85025; 87086; 93005; 96361; 96374; 99285; J0737

== ENCOUNTER → 2023-09-08 21:11 | Outpatient (BNV) | payer SELFPAY | PROVIDERS: Emergency Provider Emergency Medicine; Visit Provider Internal Medicine | DX: R00.0 Tachycardia, unspecified (principal) | CPT/HCPCS: 93010 ==

== ENCOUNTER 2024-05-30 06:52 | Emergency (ER) | payer MEDICAID, SELFPAY ==
--- NOTE | ~2024-05-30 | XR_ITS ---
EXAMINATION: XR CHEST CLINICAL INFORMATION: Cough and chest tightness COMPARISON: Chest radiograph 09/07/2022 TECHNIQUE: 2 views of the chest were obtained. FINDINGS: The lungs are adequately expanded. No focal consolidation. No pleural effusions or pneumothorax. The cardiomediastinal silhouette is within normal limits. No acute osseous abnormality. XR/XR chest 2V IMPRESSION: No acute pulmonary disease. Electronically signed by: Breezy Colmenares MD 05/30/2024 09:00 AM EDT
[2024-05-30 06:53] VITALS: BP 171/99; PULSE 71; RESP 19; TEMP 36.6; O2SAT 99; BMI 29.1
--- NOTE | 2024-05-30 07:41 | ED.URI ---
HPI - URI/Sore Throat General Chief Complaint: Upper Respiratory Symptoms Stated Complaint: fever, stuffy nose , light headed Time Seen by Provider: 05/30/24 07:38 Source: patient and RN notes reviewed Mode of arrival: ambulatory Limitations: no limitations History of Present Illness ED Provider: Anayeli Johnson PA-C HPI Narrative: This is a 28-year-old male, with no known medical problems, who presents emergency department with complaints of congestion, headache, dizziness, subjective fevers fevers, cough, and chest discomfort x 6 days. Patient states that he has had all of the symptoms over the last several days. He has been taking [id number]-rnpyslu medications which has provided him with minimal relief. He denies any vision changes, blurred vision, palpitations. States that the chest pain is more of a discomfort, and is constant. He does report that he is sexually active, states that his girlfriend has a ?infection?. He states that he has noticed some painful urination. He endorses a decreased appetite since the onset of his symptoms. He denies any abdominal pain. He states that the worst symptom he is experiencing as the lightheadedness, and headache. He states that the headache worsens with leaning forward. Denies any other complaints or concerns at this time. MD elicited complaint: fever, nasal congestion and sinus pain Onset (ago): day(s) Consistency: constant Severity: moderate Able to tolerate fluids by mouth: Yes Exacerbating factors: leaning forward Relieving factors: OTC cold medicine Associated symptoms: fever (Subjective) Treatments prior to arrival: none Related Data Previous Rx's ?Medication ?Instructions ?Recorded ondansetron 4 mg disintegrating 4 mg PO Q6H PRN nausea and 09/12/21 tablet vomiting #10 tabs penicillin V potassium 500 mg 500 mg PO BID 10 days #20 tabs 09/07/22 tablet levofloxacin 500 mg tablet 500 mg PO DAILY #9 tabs 09/09/23 loperamide 2 mg capsule 2 mg PO Q6H PRN loose stool #10 09/09/23 caps ondansetron HCl 4 mg tablet 4 mg PO Q8H PRN nausea and 09/09/23 vomiting #10 tabs amoxicillin 875 mg-potassium 1 tab PO BID 7 days #14 tabs 05/30/24 clavulanate 125 mg tablet Allergies Allergy/AdvReac Type Severity Reaction Status Date / Time aspirin [ASPIRIN] Allergy Unknown HIVES Verified 05/30/24 06:55 Review of Systems Review of Systems: Yes all other systems are reviewed and are negative Constitutional: Constitutional: Reports as per [facility] Past Medical History Medical History No known health problems Social History Social History Advance Directives: No Advance Directives Information Provided: No Physical Exam Vital Signs: Vital Signs: Last Vital Signs Temp 97.8 F 05/30/24 11:25 Pulse 67 05/30/24 11:25 Resp 14 05/30/24 11:25 BP 138/95 H 05/30/24 11:25 Pulse Ox 100 05/30/24 11:25 O2 Del Method Room Air 05/30/24 11:25 BMI result Body Mass Index 29.1 Const: General: cooperative, comfortable and no acute distress Orientation/consciousness: patient oriented x3 Limitations: no limitations HEENT: Other: Tenderness palpation along the frontal and maxillary sinuses, no ethmoid sinus tenderness Head: Yes normal to inspection, Yes normocephalic and Yes atraumatic Ears: hearing grossly normal bilaterally and TM's normal bilaterally General nose exam: Normal external nose present Face and sinus: Yes normal facial exam Mouth: Normal oral and palatal mucosa present, oropharynx normal and moist mucous membranes Throat: Yes posterior oropharynx normal Eyes: General: appearance normal, both eyes and all related structures Eyelids: Yes eyelids normal Conjunctivae: conjunctivae normal Sclerae: sclerae normal Pupils: Equal, round and reactive pupils present EOM: EOMs intact bilaterally Neck: Neck: Yes normal visual inspection, Yes full ROM and Yes no lymphadenopathy Lymphatic: no lymphadenopathy noted Chest: Chest palpation & inspection: normal inspection of the chest Resp: Effort & Inspection: normal respiratory effort and able to speak in complete sentences Auscultation: clear to auscultation bilaterally, no crackles, no rales, no rhonchi and no wheezes Cardio: Rate: regular rate Rhythm: regular rhythm Heart sounds: S1 normal heart sound present and S2 normal heart sound present GI: Other: Abdomen is soft and nontender Inspection: Yes normal to inspection Skin: General skin exam: no rashes or lesions noted Trauma: no lacerations or abrasions Wounds: no wounds Neuro: General: patient oriented x3 and moves all extremities Cranial nerves: Yes Equal, round and reactive pupils present Extrem: General: Yes normal to inspection Right upper extremity: normal to inspection Left upper extremity: normal to inspection Right lower extremity: normal to inspection Left lower extremity: normal to inspection Course Reevaluation(s) Reevaluation #1: Labs returned, patient has no leukocytosis, stable H&H, chemistry revealing slight elevation in ALT, and AST, has a history of this. Alk phos within normal limits. Awaiting urine sample. Time: 09:43 Reevaluation #2: Urine does have small blood, and rbc's. No evidence of infection. Workup unremarkable. Patient's symptoms attributed to a sinusitis, will treat with Augmentin. Given strict return precautions. He also reports some burning with urination, he does not want to be treated prophylactically for STIs. Patient is aware that he may need to return for treatment if this does come back positive. He is agreeable to this. Patient stable for discharge Time: 11:10 Medical Decision Making Medical Decision Making [facility] Narrative: This is a 28-year-old male who presents emergency department with complaints of congestion, fever, cough, headaches, and dizziness for the last 6 days. On arrival, blood pressure elevated at 171/99. He states that he has been taking [id number]-[id number] cough and cold medicine. Lungs are clear to auscultation bilaterally. Physical exam is reassuring. Differential diagnoses include acute sinusitis, URI, pneumonia, ACS-unlikely. Plan: Labs, chest x-ray, EKG Differential Diagnosis Differential Diagnoses: The differential diagnosis associated with the presentation includes See above Lab Data [facility] Lab Attestation statement: I reviewed the patient's lab results. No leukocytosis, stable H&H, chemistry within normal limits. Negative viral swabs, see course comment for further detail. 05/30/24 08:35 05/30/24 08:35 Labs: Lab Results 05/30/24 05/30/24 05/30/24 Range/Units 07:09 08:35 10:44 WBC 5.4 (4.8-10.8) X10*3/uL RBC 5.52 (4.60-5.80) X10*6/uL Hgb 16.3 (14.0-18.0) g/dl Hct 47.4 (42.0-52.0) % MCV 85.9 (80.0-98.0) fL MCH 29.5 (27.0-33.0) pg MCHC 34.4 (31.0-36.0) g/dl RDW 12.2 (11.0-16.0) % Plt Count 232 (160-400) X10*3/uL MPV 9.9 (9.4-12.4) fL Immature Gran % (Auto) 0.2 (0.0-0.4) % Neut % (Auto) 51.5 (45-73) % Lymph % (Auto) 34.6 (20-40) % [place] % (Auto) 9.6 (2-11) % Eos % (Auto) 3.7 (0-4) % Baso % (Auto) 0.4 (0-2) % Lymph # (Auto) 1.9 (1.2-4.9) X10*3/uL [place] # (Auto) 0.5 (0.1-1.2) X10*3/uL Eos # (Auto) 0.2 (0.0-0.4) X10*3/uL Baso # (Auto) 0.0 (0.0-0.2) X10*3/uL Abs Immat Gran (auto) 0.01 (0.00-0.03) X10*3/uL Absolute Neuts (auto) 2.8 (2.0-8.3) x10*3/uL Absolute Nucleated RBC 0.000 (0.0-0.012) X10*3/uL Nucleated RBC % (auto) 0.0 (0.0-0.2) /100WBC Sodium 141 (135-145) mmol/L Potassium 4.0 (3.3-5.1) mmol/L Chloride 107 (96-108) mmol/L Carbon Dioxide 26 (22-29) mmol/L Anion Gap 12 (12-20) BUN 12 (9-16) mg/dL Creatinine 1.04 (0.5-1.4) mg/dL Estim Creat Clear Calc 120.6 Estimated GFR > 60 Random Glucose 98 (60-115) mg/dL Calcium 9.5 (8.4-10.2) mg/dL Total Bilirubin 0.4 (0.0-1.0) mg/dL AST 39 H (5-37) U/L ALT 72 H (0-40) U/L Alkaline Phosphatase 99 (39-117) U/L Troponin I High Sens < 2.7 (<3.5-35.0) ng/L Total Protein 7.7 (6.5-8.0) g/dL Albumin 4.2 (3.5-5.0) g/dL Urine Color Yellow Urine Appearance Clear Urine pH 7.0 (5.0-9.0) Ur Specific [place] 1.015 (1.005-1.025) Urine Protein 30 (1+) H (Neg-Trace) mg/dL Urine Glucose (UA) Negative (Negative) mg/dL Urine Ketones Negative (Negative) mg/dL Urine Blood Small (1+) H (Negative) Urine Nitrite Negative (Negative) Ur Leukocyte Esterase Negative (Negative) Urine RBC 6-10 H (0-2) /HPF Urine WBC 0-5 (0-5) /HPF Ur Squamous Epith Cells 0-2 (0-2) /HPF Urine Bacteria None Seen (None Seen) Hyaline Casts 0-2 (0-2) /LPF Chlam trachomat DNA PCR NOT DETECTED (Not Detect.) Influenza Type A (PCR) NEGATIVE (Negative) Influenza Type B (PCR) NEGATIVE (Negative) N.gonorrhoeae DNA (PCR) NOT DETECTED (Not Detect.) RSV RNA Qual (PCR) NEGATIVE (Negative) SARS-CoV-2 RNA (RT-PCR) NEGATIVE (Negative) Independent Interpretation I performed an independent interpretation of an: EKG Interpretation: EKG normal sinus rhythm at a ventricular rate of 66 beats per minute, AR interval 180, no ST elevation or depression. No STEMI. Radiology Impression Discussion of test interpretation with radiology: I have reviewed the radiologist's reading. Radiologist Impression: XR/XR chest 2V IMPRESSION: No acute pulmonary disease. Electronically signed by: Breezy Colmenares MD 05/30/2024 09:00 AM EDT RP Dictated By: Breeyz Colmenares Discharge Plan Discharge Clinical Impression: Sinusitis Patient Disposition: Home, Self-Care Instructions: Sinusitis (ED) Additional Instructions: You were seen in the emergency department due to congestion, fever and cough. You have evidence of a sinus infection on examination today. Please take prescribed antibiotic as directed. Finish the entire course even if your symptoms improve. Drink plenty of fluids get plenty of rest. Alternate between ibuprofen and Tylenol as needed for symptoms. If any new or worsening symptoms occur including but not limited to chest pain, shortness for breath, abdominal pain, nausea, vomiting or diarrhea. Prescriptions: New amoxicillin-pot clavulanate 875-125 mg tablet 1 tab PO BID 7 Days Qty: 14 0RF No Action ondansetron 4 mg tablet,disintegrating 4 mg PO Q6H PRN (Reason: nausea and vomiting) Qty: 10 0RF penicillin V potassium 500 mg tablet 500 mg PO BID 10 Days Qty: 20 0RF levofloxacin 500 mg tablet 500 mg PO DAILY Qty: 9 0RF ondansetron HCl 4 mg tablet 4 mg PO Q8H PRN (Reason: nausea and vomiting) Qty: 10 0RF loperamide 2 mg capsule 2 mg PO Q6H PRN (Reason: loose stool) Qty: 10 0RF Stand Alone Forms: Work/School Release Interventions: ED Discharge Assessment Last Done: 05/30/24 11:25 Discharge Date/Time: 05/30/24 11:26 Print Language: Mongolian
[2024-05-30 07:52] LABS: Influenza A PCR NEGATIVE (Negative); Influenza B PCR NEGATIVE (Negative); Resp Syncy Virus RNA Qual PCR NEGATIVE (Negative); SARS COV2 PCR INHOUSE NEGATIVE (Negative)
--- NOTE | 2024-05-30 08:07 | ECG_ITS ---
Test Reason : DIZZINESS Blood Pressure : / mmHG Vent. Rate : 066 BPM Atrial Rate : 066 BPM P-R Int : 180 ms QRS Dur : 082 ms QT Int : 380 ms P-R-T Axes : 002 001 001 degrees QTc Int : 398 ms Normal sinus rhythm Minimal voltage criteria for LVH, may be normal variant ( R in aVL ) Borderline ECG When compared with ECG of 08-SEP-2023 21:29, Vent. rate has decreased BY 37 BPM Referred By: Anayeli Johnson Electronically Signed By:SHAQ BEAR
[2024-05-30 08:40] LABS: MANUAL DIFF FLAG NO
[2024-05-30 08:42] LABS: Basophils Percent Auto 0.4 % (0-2); Eosinophils Absolute Auto 0.2 X10*3/uL (0.0-0.4); Eosinophils Percent Auto 3.7 % (0-4); Hematocrit 47.4 % (42.0-52.0); Hemoglobin 16.3 g/dl (14.0-18.0); Imm Gran Abs Auto 0.01 X10*3/uL (0.00-0.03); Imm Gran Pct Auto 0.2 % (0.0-0.4); Lymphocytes Absolute Auto 1.9 X10*3/uL (1.2-4.9); Lymphocytes Percent Auto 34.6 % (20-40); Mean Corpuscular HGB Conc 34.4 g/dl (31.0-36.0); Mean Corpuscular Hemoglobin 29.5 pg (27.0-33.0); Mean Corpuscular Volume 85.9 fL (80.0-98.0); Mean Platelet Volume 9.9 fL (9.4-12.4); Monocytes Absolute Auto 0.5 X10*3/uL (0.1-1.2); Monocytes Percent Auto 9.6 % (2-11); Neutrophils Absolute Auto 2.8 x10*3/uL (2.0-8.3); Neutrophils Percent Auto 51.5 % (45-73); Platelet Count 232 X10*3/uL (160-400); Red Blood Count 5.52 X10*6/uL (4.60-5.80); Red Cell Distribution Width 12.2 % (11.0-16.0); White Blood Count 5.4 X10*3/uL (4.8-10.8)
[2024-05-30 09:08] LABS: Alanine Aminotransferase 72 U/L (0-40); Albumin Level 4.2 g/dL (3.5-5.0); Alkaline Phosphatase 99 U/L (39-117); Anion Gap 12 (12-20); Aspartate Amino Transferase 39 U/L (5-37); Bilirubin Total 0.4 mg/dL (0.0-1.0); Blood Urea Nitrogen 12 mg/dL (9-16); Calcium 9.5 mg/dL (8.4-10.2); Carbon Dioxide 26 mmol/L (22-29); Chloride 107 mmol/L (96-108); Creatinine Clr Calc Pharmacy 120.6; Estimated Glomerular Filt Rate > 60; Glucose Random 98 mg/dL (60-115); Sodium 141 mmol/L (135-145); Total Protein 7.7 g/dL (6.5-8.0)
[2024-05-30 09:09] LABS: Troponin-I High Sensitivity < 2.7 ng/L (<3.5-35.0)
[2024-05-30 10:54] LABS: Appearance Urine Clear; Color Urine Yellow; Glucose Urine UA Negative (Negative); Leukocyte Esterase Urine Negative (Negative); Nitrite Urine Negative (Negative); Specific Gravity - Urine 1.015 (1.005-1.025); UMIC TRIGGER UACC YES; Urine Blood Small (1+) (Negative); Urine Ketones Negative (Negative); Urine Protein 30 (1+) mg/dL (Neg-Trace)
[2024-05-30 11:01] LABS: Bacteria Urine None Seen (None Seen); Hyaline Casts Urine 0-2 /LPF (0-2); Squamous Epithelial Cell Urine 0-2 /HPF (0-2); WBC Urine 0-5 /HPF (0-5)
[2024-05-30 11:13] VITALS: BP 138/95; PULSE 67; RESP 14; TEMP 36.6; O2SAT 100
[2024-05-30 11:25] VITALS: BP 138/95; PULSE 67; RESP 14; TEMP 36.6; O2SAT 100
[2024-05-30 12:43] LABS: CT PCR NOT DETECTED (Not Detect.); NG PCR NOT DETECTED (Not Detect.)
== END 2024-05-30 11:26 | disposition home or self-care (01) ==
PROVIDERS: Physician Assistant Medical; Emergency Provider Emergency Medicine Emergency Medical Services
DX: J32.9 Chronic sinusitis, unspecified (principal); Z03.818 Encounter for observation for suspected exposure to other biological agents ruled out; R50.9 Fever, unspecified; R05.9 Cough, unspecified
CPT/HCPCS: 0241U; 36415; 71046; 80053; 81001; 84484; 85025; 87491; 87591; 93005; 99283; 99284

== ENCOUNTER 2024-06-18 19:43 | Emergency (ER) | payer OTHER, SELFPAY ==
--- NOTE | ~2024-06-18 | XR_ITS ---
EXAMINATION: XR CHEST CLINICAL INFORMATION: Chest pain. Coughing blood. COMPARISON: Chest radiograph dated May 30, 2024. TECHNIQUE: 2 views of the chest were obtained. FINDINGS: The heart is normal in size. Lungs are clear. The pleural spaces are clear. No pneumothorax. No acute osseous abnormality. XR/XR chest 2V IMPRESSION: No acute cardiopulmonary disease. Electronically signed by: Jesus Stafford DO 06/18/2024 10:22 PM EDT
[2024-06-18 19:48] VITALS: BP 157/101; PULSE 104; RESP 20; TEMP 37; O2SAT 95; BMI 34.2
--- NOTE | 2024-06-18 19:49 | ED.GENADULT ---
HPI - General Adult General Chief complaint: Upper Respiratory Symptoms Stated complaint: headache, coughing blood Time Seen by Provider: 06/18/24 22:39 Source: patient Mode of arrival: ambulatory Limitations: no limitations History of Present Illness ED Provider: astrid LYNN narrative: Patient's coughing for last 2- 3 days was sick 2 weeks ago and was treated with Augmentin for sinus infection comes here as still coughing and getting blood-tinged phlegm Related Data Previous Rx's ?Medication ?Instructions ?Recorded ondansetron 4 mg disintegrating 4 mg PO Q6H PRN nausea and 09/12/21 tablet vomiting #10 tabs penicillin V potassium 500 mg 500 mg PO BID 10 days #20 tabs 09/07/22 tablet levofloxacin 500 mg tablet 500 mg PO DAILY #9 tabs 09/09/23 loperamide 2 mg capsule 2 mg PO Q6H PRN loose stool #10 09/09/23 caps ondansetron HCl 4 mg tablet 4 mg PO Q8H PRN nausea and 09/09/23 vomiting #10 tabs amoxicillin 875 mg-potassium 1 tab PO BID 7 days #14 tabs 05/30/24 clavulanate 125 mg tablet benzonatate 200 mg capsule 200 mg PO TID PRN cough #20 caps 06/18/24 prednisone 20 mg tablet 40 mg (2 x 20 mg) PO DAILY #10 tabs 06/18/24 Allergies Allergy/AdvReac Type Severity Reaction Status Date / Time aspirin [ASPIRIN] Allergy Unknown HIVES Verified 06/18/24 19:50 Review of Systems Review of Systems: Yes all other systems are reviewed and are negative PMFSH Past Medical History Medical History No known health problems Social History Social History Advance Directives: No Advance Directives Information Provided: No Do you have a plan to hurt others: No Plan Physical Exam ED Vital Signs: Vital Signs - 24 hr 06/18/24 19:48 06/18/24 22:00 06/18/24 23:21 Temperature 98.6 F 98.7 F 98.7 F Pulse Rate 104 H 97 102 H Respiratory Rate 20 16 16 Blood Pressure 157/101 H 108/74 142/97 H Pulse Oximetry 95 95 98 Oxygen Delivery Method Room Air Room Air Room Air 06/18/24 23:40 Temperature 98.7 F Pulse Rate 102 H Respiratory Rate 16 Blood Pressure 142/97 H Pulse Oximetry 98 Oxygen Delivery Method BMI result Body Mass Index 34.2 Appearance: Alert. Oriented X3. No acute distress. Eyes: No pallor or icterus ENT: Pharynx normal. Oral Mucosa moist Neck: Normal inspection. Neck supple. CVS: Normal heart rate and rhythm. Pulses normal. Respiratory: No respiratory distress. Equal air entry bilateral, no wheezing/rales/rhonchi Abdomen: Soft and nontender. Bowel sounds are present, Skin: Skin warm and dry. Normal skin color. Normal skin turgor. Extremities: No lower extremity edema. No calf tenderness Neuro: Oriented X 3. Course Course Course Narrative: This is a Rapid Medical Examination (RME) performed by Ju Lemus PA-C in triage. Full HPI, ROS, assessment and treatment plan per primary provider in the Main ED. 28 yo male here for eval reports hemoptysis x2 days. endorses substernal chest pain that was constant yesterday, now is only on coughing. assoc light headedness. admits BP at home has been elevated w/ SBP in 140s. no recent travel or long car rides. no calf pain/ swelling. Plan: basic labs, viral serology, CXR Medications Administered Discontinued Medications Generic Name Dose Route Start Last Admin Trade Name Freq PRN Reason Stop Dose Admin Benzonatate 200 mg 06/18/24 23:07 06/18/24 23:29 Benzonatate 100 Mg Capsule PO 06/18/24 23:08 200 mg ONCE ONE Administration Prednisone 40 mg 06/18/24 23:07 06/18/24 23:29 Prednisone 20 Mg Tablet PO 06/18/24 23:08 40 mg ONCE ONE Administration Medical Decision Making Medical Decision Making [facility] Narrative: Patient has acute bronchitis with sinus congestion lab workup chest x-ray negative discharge patient home on prednisone and cough drops Lab Data [facility] Lab Attestation statement: I reviewed the patient's lab results. 06/18/24 20:13 06/18/24 20:13 Labs: Lab Results 06/18/24 Range/Units 20:13 WBC 9.2 (4.8-10.8) X10*3/uL RBC 5.37 (4.60-5.80) X10*6/uL Hgb 16.0 (14.0-18.0) g/dl Hct 45.8 (42.0-52.0) % MCV 85.3 (80.0-98.0) fL MCH 29.8 (27.0-33.0) pg MCHC 34.9 (31.0-36.0) g/dl RDW 12.0 (11.0-16.0) % Plt Count 261 (160-400) X10*3/uL MPV 9.6 (9.4-12.4) fL Immature Gran % (Auto) 0.2 (0.0-0.4) % Neut % (Auto) 67.4 (45-73) % Lymph % (Auto) 20.3 (20-40) % [place] % (Auto) 7.8 (2-11) % Eos % (Auto) 4.0 (0-4) % Baso % (Auto) 0.3 (0-2) % Lymph # (Auto) 1.9 (1.2-4.9) X10*3/uL [place] # (Auto) 0.7 (0.1-1.2) X10*3/uL Eos # (Auto) 0.4 (0.0-0.4) X10*3/uL Baso # (Auto) 0.0 (0.0-0.2) X10*3/uL Abs Immat Gran (auto) 0.02 (0.00-0.03) X10*3/uL Absolute Neuts (auto) 6.2 (2.0-8.3) x10*3/uL Absolute Nucleated RBC 0.000 (0.0-0.012) X10*3/uL Nucleated RBC % (auto) 0.0 (0.0-0.2) /100WBC Sodium 143 (135-145) mmol/L Potassium 3.6 (3.3-5.1) mmol/L Chloride 107 (96-108) mmol/L Carbon Dioxide 24 (22-29) mmol/L Anion Gap 16 (12-20) BUN 10 (9-16) mg/dL Creatinine 1.14 (0.5-1.4) mg/dL Estim Creat Clear Calc 111.7 Estimated GFR > 60 Random Glucose 130 H (60-115) mg/dL Calcium 9.5 (8.4-10.2) mg/dL Magnesium 2.0 (1.6-2.6) mg/dL Total Bilirubin 0.3 (0.0-1.0) mg/dL AST 39 H (5-37) U/L ALT 59 H (0-40) U/L Alkaline Phosphatase 134 H (39-117) U/L Troponin I High Sens < 2.7 (<3.5-35.0) ng/L Total Protein 8.1 H (6.5-8.0) g/dL Albumin 4.1 (3.5-5.0) g/dL Influenza Type A (PCR) NEGATIVE (Negative) Influenza Type B (PCR) NEGATIVE (Negative) RSV RNA Qual (PCR) NEGATIVE (Negative) SARS-CoV-2 RNA (RT-PCR) NEGATIVE (Negative) Independent Interpretation I performed an independent interpretation of an: Plain X-Ray Radiology Impression Discussion of test interpretation with radiology: I have reviewed the radiologist's reading. Discharge Plan Discharge Clinical Impression: Sinusitis, Bronchitis Patient Disposition: Home, Self-Care Instructions: Acute Bronchitis (ED), Rhinosinusitis (DC) Additional Instructions: Take prednisone as prescribed Cough drops as prescribed Drink plenty of fluids Prescriptions: New benzonatate 200 mg capsule 200 mg PO TID PRN (Reason: cough) Qty: 20 0RF prednisone 20 mg tablet 40 mg PO DAILY Qty: 10 0RF No Action ondansetron 4 mg tablet,disintegrating 4 mg PO Q6H PRN (Reason: nausea and vomiting) Qty: 10 0RF penicillin V potassium 500 mg tablet 500 mg PO BID 10 Days Qty: 20 0RF levofloxacin 500 mg tablet 500 mg PO DAILY Qty: 9 0RF ondansetron HCl 4 mg tablet 4 mg PO Q8H PRN (Reason: nausea and vomiting) Qty: 10 0RF loperamide 2 mg capsule 2 mg PO Q6H PRN (Reason: loose stool) Qty: 10 0RF amoxicillin-pot clavulanate 875-125 mg tablet 1 tab PO BID 7 Days Qty: 14 0RF Stand Alone Forms: Work/School Release Interventions: ED Discharge Assessment Last Done: 06/18/24 23:40 Discharge Date/Time: 06/18/24 23:53 Print Language: Indonesian
--- NOTE | 2024-06-18 19:53 | ECG_ITS ---
Test Reason : upper respiratory symptms Blood Pressure : / mmHG Vent. Rate : 107 BPM Atrial Rate : 107 BPM P-R Int : 166 ms QRS Dur : 078 ms QT Int : 326 ms P-R-T Axes : 023 019 014 degrees QTc Int : 435 ms Sinus tachycardia Abnormal ECG When compared with ECG of 30-MAY-2024 08:22, Vent. rate has increased BY 41 BPM Referred By: Malini Lemus Electronically Signed By:SHAQ BEAR
[2024-06-18 20:18] LABS: MANUAL DIFF FLAG NO
[2024-06-18 20:20] LABS: Basophils Percent Auto 0.3 % (0-2); Eosinophils Absolute Auto 0.4 X10*3/uL (0.0-0.4); Hematocrit 45.8 % (42.0-52.0); Imm Gran Abs Auto 0.02 X10*3/uL (0.00-0.03); Imm Gran Pct Auto 0.2 % (0.0-0.4); Lymphocytes Absolute Auto 1.9 X10*3/uL (1.2-4.9); Lymphocytes Percent Auto 20.3 % (20-40); Mean Corpuscular HGB Conc 34.9 g/dl (31.0-36.0); Mean Corpuscular Hemoglobin 29.8 pg (27.0-33.0); Mean Corpuscular Volume 85.3 fL (80.0-98.0); Mean Platelet Volume 9.6 fL (9.4-12.4); Monocytes Absolute Auto 0.7 X10*3/uL (0.1-1.2); Monocytes Percent Auto 7.8 % (2-11); Neutrophils Absolute Auto 6.2 x10*3/uL (2.0-8.3); Neutrophils Percent Auto 67.4 % (45-73); Platelet Count 261 X10*3/uL (160-400); Red Blood Count 5.37 X10*6/uL (4.60-5.80); White Blood Count 9.2 X10*3/uL (4.8-10.8)
[2024-06-18 20:34] LABS: Alanine Aminotransferase 59 U/L (0-40); Albumin Level 4.1 g/dL (3.5-5.0); Alkaline Phosphatase 134 U/L (39-117); Anion Gap 16 (12-20); Aspartate Amino Transferase 39 U/L (5-37); Bilirubin Total 0.3 mg/dL (0.0-1.0); Blood Urea Nitrogen 10 mg/dL (9-16); Calcium 9.5 mg/dL (8.4-10.2); Carbon Dioxide 24 mmol/L (22-29); Chloride 107 mmol/L (96-108); Creatinine Clr Calc Pharmacy 111.7; Estimated Glomerular Filt Rate > 60; Glucose Random 130 mg/dL (60-115); Potassium 3.6 mmol/L (3.3-5.1); Sodium 143 mmol/L (135-145); Total Protein 8.1 g/dL (6.5-8.0)
[2024-06-18 20:46] LABS: Troponin-I High Sensitivity < 2.7 ng/L (<3.5-35.0)
[2024-06-18 20:54] LABS: Influenza A PCR NEGATIVE (Negative); Influenza B PCR NEGATIVE (Negative); Resp Syncy Virus RNA Qual PCR NEGATIVE (Negative); SARS COV2 PCR INHOUSE NEGATIVE (Negative)
[2024-06-18 22:00] VITALS: BP 108/74; PULSE 97; RESP 16; TEMP 37.1; O2SAT 95
[2024-06-18 23:21] VITALS: BP 142/97; PULSE 102; RESP 16; TEMP 37.1; O2SAT 98
[2024-06-18] MEDS: Benzonatate 100 MG CAPSULE 200 MG PO (23:29)
[2024-06-18] MEDS: predniSONE 20 MG TABLET 40 MG PO (23:29)
[2024-06-18 23:40] VITALS: BP 142/97; PULSE 102; RESP 16; TEMP 37.1; O2SAT 98
== END 2024-06-18 23:53 | disposition home or self-care (01) ==
PROVIDERS: Physician Assistant Medical; Emergency Provider Internal Medicine
DX: J32.9 Chronic sinusitis, unspecified (principal); J40 Bronchitis, not specified as acute or chronic; R51.9 Headache, unspecified; R04.2 Hemoptysis; Z03.818 Encounter for observation for suspected exposure to other biological agents ruled out; Z79.899 Other long term (current) drug therapy
CPT/HCPCS: 0241U; 36415; 71046; 80053; 83735; 84484; 85025; 93005; 99283; 99284